=== PATIENT | male | born 1960 | race Caucasian/White ===

== ENCOUNTER 2023-03-26 09:20 | Emergency (ER) | payer BC ==
[2023-03-26] MEDS ORDERED: Ketorolac 30 MG/ML SDV IM ONE (09:53)
[2023-03-26] MEDS ORDERED: Orphenadrine 60 MG/2 ML Inj IM ONE (09:53)
[2023-03-26] MEDS ORDERED: predniSONE 20 MG Tab PO ONE (09:53)
== END 2023-03-26 10:25 | disposition home or self-care (01) ==
LOC: VM.ED 09:20
DX: M54.41 Lumbago with sciatica, right side (principal); Z79.899 Other long term (current) drug therapy
CPT/HCPCS: 96372; 99283; J1885; J2360; J7512